=== PATIENT | male | born 1955 ===

== ENCOUNTER → 2017-06-30 | Outpatient (CLI) | payer OTHER ==
[~2017-06-30] MED LIST: DULO60CA44 PO; HYDR-4330 PO; TIZA4TAB5 PO
--- NOTE | 2017-06-30 12:09 | DIAGNOSTIC IMAGING REPORT ---
VIDEO SWALLOW CLINICAL HISTORY: 62 years-old Male with R13.10, R05. Acute cough and dysphasia TECHNIQUE: Video fluoroscopic evaluation of swallowing was performed in the AP and lateral projections by the speech pathology staff. The patient is fed nectar-thick and thin liquid barium, a barium coated wafer, and barium pudding. FLUOROSCOPY TIME: 1.4 minutes. COMPARISON STUDY: Chest radiograph 6 12/19/2012. FINDINGS: There is normal hyoid excursion and epiglottic deflection. No significant penetration or aspiration identified. Swallowing function is within normal limits. Mild degenerative changes of the cervical spine incidentally noted. IMPRESSION: 1. No aspiration identified. 2. Please see the speech pathologist report for detailed findings and recommendations. Electronically signed by: Jeremiah Lovelace M.D. 06/30/2017 12:08 PM Dictated Date/Time: 06/30/2017 12:06 PM
--- NOTE | 2017-06-30 16:50 | SWALLOWING EVALUATION ---
REFERRING SPEECH PATHOLOGIST: n/a HISTORY: This 62 year-old man was referred for a VFSS at [facility] in order to rule out aspiration and address c/o increased coughing with oral intake and feelings of globus sensation. The patient has a PMH significant for severe work accident in 2003 and he did have temporary tracheostomy during hospitalization after the accident, chronic pain s/p the accident in 2003 (including neck pain), MACI with CPAP, and anxiety. Currently the patient's diet level is regular. PROCEDURE: The patient was seen in the Radiology Department of [facility] for the VFSS. Cursory examination of the oral cavity revealed adequate dentition. Movement of the articulators was WNL. The patient was seated on a stool and was viewed in both the Anterior-Posterior (A-P) and Lateral planes. Volitional phonation exercises completed in the A-P plane revealed bilateral vocal fold movement and vocal intensity within functional limits. In the lateral plane, the patient was given the following boluses: 1 tsp. thin liquid barium x 2, single swallow thin liquid barium self-presented from a cup, sequential swallows of thin liquid barium self-presented from a cup, 1 tsp. nectar-thick liquid barium, single swallow nectar-thick liquid barium self-presented from a cup, 1 tsp. barium pudding, and 1 club cracker with barium pudding. The patient was then repositioned into the A-P plane and given 1 tsp. barium pudding. RESULTS: Oral Stage: Labial seal complete. Lingual control during oral bolus hold was WNL. Mastication and bolus transport to pharynx were timely and efficient. No oral bolus retention after the swallow. Pharyngeal swallow was initiated when the bolus head was at the posterior laryngeal surface of the epiglottis. No oral stage dysphagia identified. Pharyngeal Stage: Velar elevation, laryngeal elevation, anterior hyoid excursion, epiglottic inversion, and laryngeal vestibular closure were complete. Pharyngeal stripping wave and pharyngeal contraction were complete. Distention and duration of PES opening was complete. Tongue base retraction was complete. Valleculae and pyriform sinuses outlined with contrast after the swallow and that cleared with a second swallow. No penetration or aspiration during this study. No pharyngeal stage dysphagia identified. Esophageal Stage: A pudding bolus transited the esophagus without impedance. It should be noted that the patient had coughing episodes throughout the study. His face would become reddened and he coughed hard. These did not correlate to penetration or aspiration since there was none during the study. SUMMARY/RECOMMENDATIONS: This patient presents with normal oral-pharyngeal swallowing. The following is recommended: 1. Diet as tolerated 2. Compensatory Strategies: avoid icy cold beverages and food items that seem to exacerbate cough 3. Consideration of f/u with ENT and/or pulmonary re: coughing. A summary of the results and recommendations was discussed with the patient immediately following the study and he is anticipating f/u with the referring physician. Thank you for referral of this patient. Please contact me at if any additional information is needed.
== END | disposition home or self-care (01) ==
LOC: C.RAD 10:56
PROVIDERS: ATTEND Family Medicine
DX: R13.10 Dysphagia, unspecified (principal); R05 Cough